=== PATIENT | male | born 1985 | race Caucasian/White ===

== ENCOUNTER 2016-09-23 10:21 | Emergency (ER) | payer BC, OTHER ==
[~2016-09-23] VITALS: Ht 175.3 cm; Wt 71.8 kg
[~2016-09-23 10:21] MED LIST: ALBU1AER9 INH; IBUP-1050 PO; PRED20TA PO; PSEU30TA20 PO
[2016-09-23 10:25] VITALS: TEMP 36.8; Ht 175.3 cm; Wt 71.8 kg
[2016-09-23] MEDS ORDERED: PROPARACAINE HCL 0.5% OP SOLN 15 ML BTL ONE (10:38)
--- NOTE | 2016-09-23 10:43 | EMERGENCY ROOM VISIT NOTE ---
ED Visit Note First contact with patient: 10:31 CHIEF COMPLAINT: Eye injury HISTORY OF PRESENT ILLNESS: This patient sustained an eye yesterday when he was working on a car and a small particle fell into his eye. Since then there has been a constant moderate pain and irritation, redness and tearing in the eye. There is a mild blurring of vision at times and light bothers the eye. The vision has not been decreased over all. His tetanus is up-to-date. REVIEW OF SYSTEMS: Head: No headache, injury or neck pain. Neck: No pain, stiffness, or swelling. Neurological: No headache, new changes in mental status, vertigo, focal weakness, numbness. PMH: The patient is healthy; there is no significant medical or surgical history. SOCIAL HISTORY: Patient lives at home. PHYSICAL EXAM: Vital Signs: Reviewed Nurse's notes. GENERAL: This is a healthy- appearing person who is uncomfortable from the eye problem. The pupils are round, equal, and react to light. EOMs are full. There is discharge of clear tears from the injured eye which is injected. There is no foreign body visible under the eyelid even after lid eversion. There is a foreign body embedded in the cornea at approximately 7:00. The cornea was clear and no hyphema was seen. EMERGENCY DEPARTMENT COURSE: The patient has a corneal foreign body with rust ring. The foreign body was easily removed with a wet cotton swab. The rust ring persists. The patient does not tolerate eye exam or procedure very well. I feel that he would best be served to see ophthalmology to have the rust ring removed. Dr. Woodruff's office was contacted and can see the patient at 1:15 today. The patient was given a take home pack of percocet and should see ophthalmology today. The patient's injury occurred at work. 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 He states that the office was closed today. I also attempted to call the office was no answer. Therefore, the patient will have to follow up with the on-call automation and controls supervisor as discussed above. Problem List Medical Problems: (1) Abdominal pain Status: Resolved (2) Acute bronchitis Status: Resolved (3) Kidney stone Status: Resolved (4) Kidney stone Status: Resolved (5) Meningitis Status: Resolved (6) Pneumonia, Organism Nos Status: Resolved (7) SOB (shortness of breath) Status: Resolved (8) SOB (shortness of breath) Status: Resolved (9) SOB (shortness of breath) Status: Resolved (10) Ureteral stone Status: Resolved (11) Urinary tract infection Status: Resolved Current/Historical Medications No Active Prescriptions or Reported Meds Allergies Uncoded Allergies: CATS (Allergy, Intermediate, SNEEZE, ITCHY WATERY EYES, 09/12/13) Vital Signs Date Time Temp Pulse Resp B/P (MAP) Pulse Ox O2 Delivery O2 Flow Rate FiO2 09/23/16 11:26 88 16 115/77 98 09/23/16 10:25 36.8 92 18 119/86 97 Room Air Medications Administered Medications (Trade) Dose Ordered Sig/My Route Start Time Stop Time Status Last Admin Dose Admin Ibuprofen (Motrin Tab) 600 mg NOW STAT PO 09/23/16 11:06 09/23/16 11:07 DC 09/23/16 11:26 600 MG Oxycodone/ Acetaminophen (Percocet 5/ 325MG Home Pack) 1 homepack UD ONCE PO 09/23/16 11:15 09/23/16 11:16 DC 09/23/16 11:26 1 HOMEPACK Departure Information Impression Primary Impression: Corneal foreign body Additional Impression: Corneal rust ring Dispostion Home / Self-Care Condition GOOD Prescriptions No Active Prescriptions or Reported Meds Referrals Master Han M.D. (PCP) Anshu Woodruff M.D. Forms HOME CARE DOCUMENTATION FORM, IMPORTANT VISIT INFORMATION, WORK / SCHOOL INSTRUCTIONS Patient Instructions Corneal Injury, [facility] Additional Instructions Percocet 1-2 tablet every 4-6 hours as needed for worse pain. No driving or alcohol use with Percocet and do not take with Tylenol. Go to Dr. Woodruff's office for an appointment at 1:15. Arrive 20 minutes prior. Return with worsening symptoms Work Instructions Return To Work: 2 days Problem Qualifiers Primary Impression: Corneal foreign body Encounter type: initial encounter Laterality: left Qualified Codes: T15.02XA - Foreign body in cornea, left eye, initial encounter Additional Impression: Corneal rust ring Laterality: left Qualified Codes: H18.892 - Other specified disorders of cornea, left eye
[2016-09-23] MEDS ORDERED: IBUPROFEN 600 MG TAB PO STA (11:06)
[2016-09-23] MEDS ORDERED: PERCOCET HOME PACK PO ONE (11:15)
[2016-09-23 11:26] VITALS: BP 115/77; PULSE 88; O2SAT 98
== END 2016-09-23 11:27 | disposition home or self-care (01) ==
LOC: C.EDB 10:23 → C.EDD 11:27
DX: T15.02XA Foreign body in cornea, left eye, initial encounter (principal); X58.XXXA Exposure to other specified factors, initial encounter; Y99.0 Civilian activity done for income or pay; Y93.89 Activity, other specified; Y92.89 Other specified places as the place of occurrence of the external cause; Z87.442 Personal history of urinary calculi; Z87.01 Personal history of pneumonia (recurrent); Z87.440 Personal history of urinary (tract) infections